=== PATIENT | male | born 1960 | race Hispanic/Latino ===

== ENCOUNTER 2017-02-02 21:04 | Emergency (ER) | payer BC, OTHER ==
[2017-02-02 21:13] VITALS: PULSE 88; RESP 16; TEMP 98.8; O2SAT 97; BMI 29.1
--- NOTE | 2017-02-02 21:41 | ED PDOC ---
Arrival/HPI - General Chief Complaint: High Blood Pressure Time Seen by Provider: 02/02/17 21:20 Historian: Patient - History of Present Illness Narrative History of Present Illness (Text): 02/02/17 21:35 A 56 year old male whose past medical history includes hypertension, presents to the emergency department with 1 week duration high blood pressure. The patient states that today he went to check his blood pressure and it was high. The pharmacy advised him to come into the emergency department. The patient notes that he checked his blood pressure prior to going on vacation 1 week ago and that it was higher than usual and went to visit his PMD who started him on Coreg 12.5 twice a day. He denies fevers chills, shortness of breath, chest pain , abdominal pain, nausea, vomiting, diarrhea, cough, headache, dizziness, or any other complaint. PMD: Dr. Kwaku Fischer Time/Duration: 1 week Symptom Onset: Sudden Symptom Course: Unchanged Activities at Onset: Rest, Light Context: Home Past Medical History - Provider Review Nursing Documentation Reviewed: Yes - Infectious Disease Hx of Infectious Diseases: None - Tetanus Immunization Tetanus Immunization: Unknown - Cardiac Hx Cardiac Disorders: Yes Hx Hypertension: Yes - Endocrine/Metabolic Hx Endocrine Disorders: Yes Hx Diabetes Mellitus Type 2: Yes - Psychiatric Hx Depression: No Hx Emotional Abuse: No Hx Physical Abuse: No Hx Substance Use: No - Surgical History Hx Appendectomy: Yes - Suicidal Assessment Feels Threatened In Home Enviroment: No Family/Social History - Physician Review Nursing Documentation Reviewed: Yes Family/Social History: No Known Family HX Smoking Status: Never Smoked Hx Alcohol Use: Yes Frequency of alcohol use: Socially Hx Substance Use: No Hx Substance Use Treatment: No Allergies/Home Meds Allergies/Adverse Reactions: Allergies No Known Allergies Allergy (Verified 11/18/12 13:03) Home Medications: Home Meds Medication Instructions Recorded Confirmed Carvedilol [Coreg] 12.5 mg PO BID 02/02/17 02/02/17 Losartan Potassium 100 mg PO DAILY 02/02/17 02/02/17 Metformin HCl [Glucophage] 1,000 mg PO BID 02/02/17 02/02/17 SITagliptin [Januvia] 50 mg PO DAILY 02/02/17 02/02/17 amLODIPine [Norvasc] 10 mg PO DAILY 02/02/17 02/02/17 Review of Systems - Physician Review All systems were reviewed & negative as marked: Yes - Review of Systems Constitutional: Other (Hypertensive). absent: Fevers, Night Sweats Respiratory: absent: SOB, Cough Cardiovascular: absent: Chest Pain Gastrointestinal: absent: Abdominal Pain, Diarrhea, Nausea, Vomiting Neurological: absent: Headache, Dizziness Physical Exam Vital Signs Reviewed: Yes Vital Signs Temp Pulse Resp BP Pulse Ox 02/02/17 21:12 98.8 F 88 16 177/103 H 97 Temperature: Afebrile Blood Pressure: Hypertensive Pulse: Regular Respiratory Rate: Normal Appearance: Positive for: Well-Appearing, Non-Toxic, Comfortable Pain Distress: None Mental Status: Positive for: Alert and Oriented X 3 - Systems Exam Head: Present: Atraumatic, Normocephalic Pupils: Present: PERRL Extroacular Muscles: Present: EOMI Conjunctiva: Present: Normal Mouth: Present: Moist Mucous Membranes Neck: Present: Normal Range of Motion Respiratory/Chest: Present: Clear to Auscultation, Good Air Exchange. No: Respiratory Distress, Accessory Muscle Use Cardiovascular: Present: Regular Rate and Rhythm, Normal S1, S2. No: Murmurs Abdomen: Present: Normal Bowel Sounds. No: Tenderness, Distention, Peritoneal Signs Back: Present: Normal Inspection Upper Extremity: Present: Normal Inspection. No: Cyanosis, Edema Lower Extremity: Present: Normal Inspection. No: Edema Neurological: Present: GCS=15, CN II-XII Intact, Speech Normal Skin: Present: Warm, Dry, Normal Color. No: Rashes Psychiatric: Present: Alert, Oriented x 3, Normal Insight, Normal Concentration Medical Decision Making ED Course and Treatment: 02/02/17 21:42 Impression: A 56 year old male presents to the emergency department with 1 week duration high blood pressure. Plan: -- Reassess and disposition Progress Notes: 02/02/17 21:40: Case discussed with Dr. Ames. Recommends doubling the dose of Coreg. States he will follow up with the patient on Monday. - Scribe Statement The provider has reviewed the documentation as recorded by the Kathie Hollis Provider Scribe Attestation: All medical record entries made by the Scribe were at my direction and personally dictated by me. I have reviewed the chart and agree that the record accurately reflects my personal performance of the history, physical exam, medical decision making, and the department course for this patient. I have also personally directed, reviewed, and agree with the discharge instructions and disposition Disposition/Present on Arrival - Present on Arrival Any Indicators Present on Arrival: No History of DVT/PE: No History of Uncontrolled Diabetes: No Urinary Catheter: No History of Decub. Ulcer: No History Surgical Site Infection Following: None - Disposition Have Diagnosis and Disposition been Completed?: Yes Diagnosis: Hypertensive urgency Disposition: HOME/ ROUTINE Disposition Time: 21:49 Patient Problems: Current Active Problems Problem Status Onset Hypertensive urgency Acute Condition: GOOD Additional Instructions: Please follow up with Dr Fischer on Monday. Double your dose of carvedilol: take 25mg two times per day. Return to the ER for any chest pain, trouble breathing, visual disturbance, confusion, numbness, weakness, or for any other concerns. Referrals: Kwaku Fischer JD, MD [Family Provider] - Follow up with primary Forms: [employer] (Chadian)
[2017-02-02 21:58] VITALS: BP 143/94
== END 2017-02-02 22:00 | disposition home or self-care (01) ==
LOC: ED 21:04
DX: I10 Essential (primary) hypertension (principal); E11.9 Type 2 diabetes mellitus without complications

== ENCOUNTER 2017-05-15 06:08 | Day surgery (SDC) | payer BC ==
[2017-04-13 13:47] VITALS: BMI 28.8
--- NOTE | 2017-05-13 14:07 | HP ---
REASON FOR ADMISSION: Left heart cath, possible angioplasty, abnormal stress test. BRIEF CLINICAL HISTORY: This is 56-year-old male with past medical history significant for Jehovah Witness, does not want any blood product during the procedure if need arises. Past history is also significant for diabetes, hypertension, hyperlipidemia, who underwent stress test because of complaining of chest pain while the patient is swimming. Stress is abnormal, so the patient is scheduled for active cardiac cath, possible angioplasty. PAST MEDICAL HISTORY: Significant for diabetes, hypertension, hyperlipidemia. CURRENT MEDICATIONS: The patient is on amlodipine 10 mg daily, Januvia 100 mg daily, metformin 1 g twice a day, losartan 100 mg daily, Plavix 75 mg daily, Coreg 25 mg twice a day, atorvastatin 10 mg daily, aspirin 81 mg daily. ALLERGIES: NO KNOWN DRUG ALLERGIES. CARDIAC WORKUP: Recent cardiac workup as follows, the patient had a stress test dated 04/14/2017. The patient walked for 9 minutes and 31 seconds on the Ruy protocol, achieved 90% rate. No chest pain. Some ST-T changes noted, but the patient had baseline left bundle, so cannot comment on change. Nuclear scan shows diffuse hypokinesis, ejection fraction 34%, abnormal partially reversible anteroseptal, apical, inferoseptal, and inferior defect suggestive of ischemia and wall motion abnormality. Multiple area of ischemia noted. REVIEW OF SYSTEMS: As per HPI. PHYSICAL EXAMINATION: As follows: VITAL SIGNS: Height of the patient 5 feet 7 inches, weight of the patient 184, body mass index 28.8 kg/m2, heart rate 60, blood pressure 120/90. HEENT: PERRLA intact. NECK: Supple. No carotid bruits or thyromegaly. CHEST: Clear to auscultation. HEART: S1 and S2 regular. ABDOMEN: Soft. EXTREMITIES: Clubbing and cyanosis negative. LABORATORY DATA: Blood workup pending. IMPRESSION: Diabetes, hypertension, hyperlipidemia, obesity, abnormal stress test with multiple area of abnormality including apical, anterior, anteroseptal, inferior, inferolateral ischemia with decreased left ventricular function. RECOMMENDATION: We will load aspirin and Plavix, check the blood workup when available. Risks, benefits, and alternatives discussed with the patient. The patient is Jehovah's Witnesses and expressed his feelings that he does not want any blood or blood product if need arises. We will respect that and try to reach left radial approach and load aspirin and Plavix. Further recommendation after cardiac catheterization. We will follow with you. Thank you Dr. Fischer/ Dr. Ro for providing us the opportunity in taking care of the patient, Devonte Mckeon. Carl Bal MD
[2017-05-15 07:09] LABS: BASO # 0.04 K/mm3 (0.0-2.0); BASO % 0.3 % (0.0-3.0); EOS # 0.2 (0.0-0.7); EOS % 1.4 % (1.5-5.0); GRAN # 8.13 (1.4-6.5); GRAN % 71.1 % (50.0-68.0); HEMATOCRIT 40.9 % (42.0-52.0); LYMPH # 2.3 (1.2-3.4); LYMPH % 20.1 % (22.0-35.0); MEAN CELL VOLUME 86.3 fl (80.0-105.0); MEAN CORPUSCULAR HEMOGLOBIN 28.9 pg (25.0-35.0); MEAN CORPUSCULAR HGB CONC 33.5 g/dl (31.0-37.0); MEAN PLATELET VOLUME 10.8 fl (7.0-11.0); MONO # 0.8 (0.1-0.6); MONO % 7.1 % (1.0-6.0); RED CELL DISTRIBUTION WIDTH 12.8 % (11.5-14.5); WHITE BLOOD COUNT 11.4 10^3/ul (4.5-11.0)
[2017-05-15 07:19] LABS: BLOOD UREA NITROGEN 16 mg/dL (7-21); CALCIUM 9.5 mg/dL (8.4-10.5); CARBON DIOXIDE 24 mmol/L (21-33); CHLORIDE 103 mmol/L (98-107); CHOLESTEROL 139 mg/dL (130-200); GFR AFRICAN-AMERICAN > 60; GLUCOSE,RANDOM 256 mg/dL (70-110); POTASSIUM 4.2 mmol/L (3.6-5.0); SODIUM 138 mmol/L (132-148)
[2017-05-15 07:30] LABS: INR 1.01 (0.93-1.08); PARTIAL THROMBOPLASTIN TIME 26.6 Seconds (25.1-36.5)
[2017-05-15 07:58] VITALS: O2SAT 95
[2017-05-15] MEDS ORDERED: Midazolam 2 MG/2 ML VIAL ONE ×2 (08:48→09:25)
[2017-05-15] MEDS ORDERED: Lidocaine 2% Inj (20ml) ONE (08:48)
[2017-05-15] MEDS ORDERED: Nitroglycerin 50mg in D5W 50 MG/250 ML BOTTLE IV ONE (08:49)
[2017-05-15] MEDS ORDERED: Iodixanol 320 MG/ML 200 ML BOTTLE IV ONE (08:49)
[2017-05-15] MEDS ORDERED: Iohexol 350mgl/ml 50 ML ONE (08:49)
[2017-05-15] MEDS ORDERED: Eptifibatide 20 mg/10mL Inj IVP ONE (09:31)
[2017-05-15] MEDS ORDERED: Sodium Chloride 0.9% 1,000 ML IV SCH (11:15)
[2017-05-15 15:49] LABS: BASO # 0.05 K/mm3 (0.0-2.0); BASO % 0.5 % (0.0-3.0); BLOOD UREA NITROGEN 14 mg/dL (7-21); CALCIUM 8.9 mg/dL (8.4-10.5); CARBON DIOXIDE 25 mmol/L (21-33); CHLORIDE 102 mmol/L (98-107); EOS # 0.2 (0.0-0.7); EOS % 1.4 % (1.5-5.0); GFR AFRICAN-AMERICAN > 60; GLUCOSE,RANDOM 254 mg/dL (70-110); GRAN # 7.11 (1.4-6.5); GRAN % 68.2 % (50.0-68.0); HEMATOCRIT 40.5 % (42.0-52.0); LYMPH # 2.3 (1.2-3.4); LYMPH % 21.8 % (22.0-35.0); MEAN CELL VOLUME 86.7 fl (80.0-105.0); MEAN CORPUSCULAR HEMOGLOBIN 28.5 pg (25.0-35.0); MEAN CORPUSCULAR HGB CONC 32.8 g/dl (31.0-37.0); MEAN PLATELET VOLUME 11.3 fl (7.0-11.0); MONO # 0.8 (0.1-0.6); MONO % 8.1 % (1.0-6.0); POTASSIUM 3.8 mmol/L (3.6-5.0); RED CELL DISTRIBUTION WIDTH 12.9 % (11.5-14.5); SODIUM 136 mmol/L (132-148); WHITE BLOOD COUNT 10.4 10^3/ul (4.5-11.0)
[2017-05-15] MEDS ORDERED: Potassium Chloride 20 mEq ER Tab PO ONE (15:51)
[2017-05-15 18:10] VITALS: BP 146/93; PULSE 117; RESP 20; TEMP 98.3
--- NOTE | 2017-05-15 18:45 | CARD ---
APPROVED REPORT Procedure(s) performed: Left Heart Catheterization PTCA with Stenting of Mid to Distal RCA with PATRICK PTCA with Stenting of Ostial Circunflex with PATRICK PTCA with Stenting of OM1 with PATRICK HISTORY The patient is a 56 year-old male with a history of : most recent EF: 34%. (EF Method: RADIONUCLIDE), diabetes mellitus with oral treatment , hypertension , dyslipidemia , had abnormal stress test, showing reversible Ischemia in holli-septal, Apical, inferoseptal andinferior region, with reduced LV Fx. EF34%. INDICATION The indication(s) include : positive stress test, dyspnea. CASE TECHNIQUE The patient was brought electively to the Cardiac Catheterization Laboratory in a fasting state and was prepped and draped in a sterile manner. The left wrist was infiltrated with 2% Lidocaine subcutaneous anesthesia. A 6FR GLIDESHEATH ACCESS KIT sheath was inserted into the left radial artery without difficulty. Coronary angiography was performed using coronary diagnostic catheters. The left coronary system was accessed and visualized with a Diagnostic ,5 Fr JL 3.5 catheter. The right coronary system was accessed and visualized with a Diagnostic ,5 Fr JR 4 catheter. The left ventricle was accessed and visualized with a 5 Fr Pigtail 145 (Angled) catheter. Left ventricular/Aortic Valve gradient assessed on pullback. Left ventriculogram was performed in [place] projection. Closure device was deployed with a Fr TR Band (Regular) without any complications. The patient tolerated the procedure well and there were no complications associated with the procedure. Vessel Analysis The patient's coronary anatomy is right dominant. The left main coronary artery is a medium size vessel with diffuse calcification noted throughout this vessel and without significant stenosis. The left main trifurcates to the left anterior descending, circumflex, and ramus. The left anterior descending artery is a medium size vessel with diffuse calcification noted throughout this vessel and without significant stenosis. There is a 50% stenosis in the mid to distal segment. Multiple stenoses The first diagonal branch is a medium size vessel with diffuse calcification noted throughout this vessel and without significant stenosis. The circumflex artery is a medium size vessel with diffuse calcification noted throughout this vessel and with significant stenosis. There is a 80% stenosis in the ostial segment. The first obtuse marginal branch is a medium size vessel with diffuse calcification noted throughout this vessel and with significant stenosis. There is a 90% stenosis in the proximal segment. The ramus intermedius artery is a medium size vessel with diffuse calcification noted throughout this vessel and without significant stenosis. The right coronary artery is a large size vessel with diffuse calcification noted throughout this vessel and with significant stenosis. There is a 80-90% stenosis in the mid segment. three tandum lesions The right posterior descending artery is a large size vessel with diffuse calcification noted throughout this vessel and without significant stenosis. The right posterolateral branch is a medium size vessel with diffuse calcification noted throughout this vessel and without significant stenosis. Left Ventricle The left ventricle is mildly enlarged in size with moderately decreased contractility. Ischemic cardiomyopathy. The left ventricular ejection fraction is estimated to be 35%. The left ventricular end diastolic pressure is 18 mmHg. There was no gradient across the aortic valve upon pullback. PCI Technique Lesion Anticoagulation was achieved with Heparin. Percutaneous coronary intervention was performed on the mid right coronary artery. The lesion stenosis prior to intervention was 80-90% with HERO 2 flow. A 6 Fr JR 3.5 Guide Catheter was used to engage the ostium. BALLOON DILATION A Balloon catheter 2.0 x 15 mm Mini Trek RX was inserted and inflated up to 12.00atm for 25seconds. STENT DEPLOYMENT A drug-eluting stent 3.0 x 30 mm Resolute PATRICK was inserted and inflated up to 10.00atm for 15seconds. POST STENT DEPLOYMENT BALLOON DILATION A Balloon catheter 3.5 x 15 mm Trek RX NC was inserted and inflated up to 15.00atm for 20seconds. Final angiography reveals 0 % stenosis with HERO 3 flow. PCI Technique Lesion 2 Percutaneous Coronary Intervention was performed on the first obtuse marginal branch segment. The lesion stenosis prior to intervention was 90% with HERO 2 flow. A 6 Fr XB 3 Guide Catheter was used to engage the ostium. A Luge 182 Interventional Guidewire was used to cross the lesion. BALLOON DILATION A Balloon catheter 2.0 x 10 mm Sprinter RX was inserted and inflated up to 8.00atm for 10seconds. Body wire Choice PT,used in Cx STENT DEPLOYMENT A drug-eluting stent 2.5 x 26 mm Resolute PATRICK was inserted and inflated up to 9.00atm for 15seconds. POST STENT DEPLOYMENT BALLOON DILATION A Balloon catheter 2.75 x 12 mm Sprinter NC was inserted and inflated up to 14.00atm for 20seconds. Final angiography reveals 0 % stenosis with HERO 3 flow. PCI Technique Lesion 3 Percutaneous Coronary Intervention was performed on the Ostial circumflex artery segment. The lesion stenosis prior to intervention was 80% with HERO 2 flow. A 6 Fr XB 3 Guide Catheter was used to engage the ostium. A Luge 182 Interventional Guidewire was used to cross the lesion. STENT DEPLOYMENT A drug-eluting stent 3.0 x 9 mm Resolute PATRICK was inserted and inflated up to 10.00atm for 25seconds. POST STENT DEPLOYMENT BALLOON DILATION A Balloon catheter was inserted and inflated up to 12.00atm for 10seconds. Final angiography reveals 0 % stenosis with HERO 3 flow. Conclusion Multi vessel CAD, But distal vesselk are poor target for CABG ( Not suitable for CABG). decreased Lv Fx.EF-35%, EDP-18 mmof Hg. Successful PTCA with Patrick of MID RCA, Ostial Cx and ARTHUR Recommendations Cardiac Rehabilitation ReferralDaily ASA with Plavix for at least one year Aggressive Medical TherapyCardiac Risk Reduction Program Weight Loss Reduction Program F/U LV fx eval in 3-6 months and if remains less than 35%, consider AICD. CC; DR. Fischer/ Jia.
--- NOTE | 2017-05-16 | CARD ---
APPROVED REPORT EKG Measurement Heart [id number] <Conclusion> Normal sinus rhythm Left bundle branch block Abnormal ECG
--- NOTE | 2017-05-16 00:31 | CARD ---
APPROVED REPORT EKG Measurement Heart [id number] <Conclusion> Normal sinus rhythm Possible Left atrial enlargement Left bundle branch block Abnormal ECG
--- NOTE | 2017-05-16 01:47 | CON ---
DATE: 05/15/2017 HISTORY OF PRESENT ILLNESS: The patient is a 56-year-old male who was admitted for elective cardiac catheterization status post abnormal stress test. The patient had been complaining of some angina during exercise as well as mild dyspnea on exertion. The patient was seen on consultation by Cardiology Dr. Bal who performed a cardiac catheterization and stent placement today. The patient is lying in bed postoperatively in no acute distress. He denies any chest pain or shortness of breath at the present time. PAST MEDICAL HISTORY: Includes type II diabetes mellitus, hypertension, and hypercholesteremia. PAST SURGICAL HISTORY: The patient has no significant past surgical history. ALLERGIES: THE PATIENT HAS NO KNOWN DRUG ALLERGIES CURRENT MEDICATIONS: Include amlodipine 10 mg daily, Plavix 75 mg daily, Januvia 100 mg daily, metformin 1 g twice daily, carvedilol 25 mg twice daily, Lipitor 10 mg daily, and aspirin 81 mg daily. SOCIAL HISTORY: The patient has no history of tobacco or alcohol use. He is independent with ADL's and . REVIEW OF SYSTEMS: Essentially negative other than above. PHYSICAL EXAMINATION: GENERAL: The patient is a well-developed male, in no acute distress. VITAL SIGNS: Blood pressure 140/84, temperature 98, pulse 80 and respiratory rate 16. HEENT: Head is normocephalic and atraumatic. Pupils are equal, round and reactive to light. Extraocular movements are intact. NECK: Supple. No thyromegaly. No carotid bruit. No adenopathy. LUNGS: Clear. HEART: Regular rate and rhythm with no murmurs, rubs, or gallops. ABDOMEN: Soft and nontender. Bowel sounds are normoactive. EXTREMITIES: Without cyanosis, clubbing or edema. Left arm surgical wound is clean with dressing intact. There is no cyanosis, clubbing or edema. NEUROLOGICAL: The patient is awake and oriented x3 without focal sensory or motor deficits. SKIN: Warm and dry. LABORATORY DATA: WBC is 10.4, hemoglobin 13.3 and hematocrit 40.5. Sodium 136, potassium 4.8, chloride 102, CO2 of 25, BUN 14, creatinine 0.9 and glucose is slightly elevated 254. IMPRESSION: 1. Coronary artery disease status post catheterization with stent placement. 2. Hypertension. 3. Type 2 diabetes mellitus. 4. Hypercholesteremia. PLAN: Continue post catheterization care. Cardiology follow up Dr. Bal. We will follow the patient in the office within the next one to two weeks. DANUTA Moore MD
== END 2017-05-15 18:32 | disposition home or self-care (01) ==
LOC: CATH 06:08 → 2RSO 11:15 → CATH 18:32
PROVIDERS: ATTEND Internal Medicine Cardiovascular Disease
DX: I25.10 Atherosclerotic heart disease of native coronary artery without angina pectoris (principal); I25.5 Ischemic cardiomyopathy; I10 Essential (primary) hypertension; E78.00 Pure hypercholesterolemia, unspecified; E78.5 Hyperlipidemia, unspecified; E11.9 Type 2 diabetes mellitus without complications; I44.7 Left bundle-branch block, unspecified; Z95.1 Presence of aortocoronary bypass graft; Z79.82 Long term (current) use of aspirin; Z79.84 Long term (current) use of oral hypoglycemic drugs; Z95.5 Presence of coronary angioplasty implant and graft; R94.39 Abnormal result of other cardiovascular function study
CPT/HCPCS: 36415; 80048; 80061; 85025; 85175; 85610; 85730; 93005; 93458; 99152; 99153; C1725 ×5; C1769 ×3; C1874 ×3; C1887 ×4; C9600; C9601; J1327; J1644 ×2; J2250; J3010; J7040 ×2; Q9967

== ENCOUNTER 2018-06-29 06:28 | Outpatient (CLI) | payer BC | END 2018-06-29 06:29 | disposition home or self-care (01) | LOC: CARDIO 06:28 | DX: E11.9 Type 2 diabetes mellitus without complications (principal); I25.10 Atherosclerotic heart disease of native coronary artery without angina pectoris; R07.89 Other chest pain ==

== ENCOUNTER 2018-09-02 07:19 | Inpatient (IN) | payer BC ==
[2018-09-02] MEDS ORDERED: Morphine 2 mg/ml ISec IVP STA (07:36)
[2018-09-02] MEDS ORDERED: Aspirin 325 mg EC Tablets PO ONE (07:39)
--- NOTE | 2018-09-02 07:40 | ED PDOC ---
Arrival/HPI - General Chief Complaint: Chest Pain Time Seen by Provider: 09/02/18 07:21 Historian: Patient - Critical Care Critical Care Minutes: 90 minutes - History of Present Illness Narrative History of Present Illness (Text): 09/02/18 07:37 58 year old male, whose past medical history includes diabetes, hypertension, hypercholesterolemia, s/p 3 stents (15 months ago), presents to the emergency department complaining of chest pain that woke him up 1.5 hours prior to arrival. Patient describes the pain as a pressure-like sensation. He did not take any medication for the pain. Patient had a stress test done 06/29/18. Patient did not take his dose of hypertension medication today. Patient occasionally drinks, and admits to drinking last night. Patient denies any history of smoking. Patient denies any fever, chills, shortness of breath, nausea, vomiting, diarrhea, urinary symptoms, back pain, neck pain, headache, dizziness, or any other complaints. PMD: Dr. Fischer [employer]ic [employer]: Dr. Valeriano De La Rosa Time/Duration: Other (1.5 hours ago) Symptom Onset: Sudden Symptom Course: Unchanged Activities at Onset: Sleeping Context: Home Past Medical History - Provider Review Nursing Documentation Reviewed: Yes - Infectious Disease Hx of Infectious Diseases: None - Tetanus Immunization Tetanus Immunization: Unknown - Cardiac Hx Hypertension: Yes - Neurological Hx Paralysis: No - Endocrine/Metabolic Hx Endocrine Disorders: Yes Hx Diabetes Mellitus Type 2: Yes - Hematological/Oncological Hx Blood Transfusions: No (PT IS [facility]/NO BLOOD TRANSFUSIONS) - Musculoskeletal/Rheumatological Hx Musculoskeletal Disorders: No - Psychiatric Hx Emotional Abuse: No Hx Physical Abuse: No Hx Substance Use: No - Surgical History Hx Cardiac Catheterization: Yes (x3) - Anesthesia Hx Anesthesia Reactions: No Hx Malignant Hyperthermia: No - Suicidal Assessment Feels Threatened In Home Enviroment: No Family/Social History - Physician Review Nursing Documentation Reviewed: Yes Family/Social History: No Known Family HX Smoking Status: Never Smoked Hx Alcohol Use: Yes (2X MONTH) Hx Substance Use: No Hx Substance Use Treatment: No Allergies/Home Meds Allergies/Adverse Reactions: Allergies No Known Allergies Allergy (Verified 09/02/18 12:07) Home Medications: Home Meds Medication Instructions Recorded Confirmed Carvedilol [Coreg] 25 mg PO BID 02/02/17 09/02/18 Losartan Potassium 100 mg PO DAILY 02/02/17 09/02/18 SITagliptin [Januvia] 100 mg PO DAILY 02/02/17 09/02/18 amLODIPine [Norvasc] 10 mg PO DAILY 02/02/17 09/02/18 Aspirin [Aspirin Chewable] 81 mg PO DAILY 04/13/17 09/02/18 Atorvastatin [Lipitor] 10 mg PO DIN 04/13/17 09/02/18 Clopidogrel [Plavix] 75 mg PO DAILY 05/09/17 09/02/18 MetFORMIN [glucOPHAGE] 1,000 mg PO BID 06/29/18 09/02/18 Review of Systems - Physician Review All systems were reviewed & negative as marked: Yes - Review of Systems Constitutional: absent: Fevers, Other (chills) Respiratory: absent: SOB Cardiovascular: Chest Pain Gastrointestinal: absent: Diarrhea, Nausea, Vomiting Genitourinary Male: absent: Dysuria, Frequency, Hematuria Musculoskeletal: absent: Back Pain, Neck Pain Neurological: absent: Headache, Dizziness Physical Exam Vital Signs Reviewed: Yes Vital Signs Temp Pulse Pulse Resp BP BP Pulse Ox 09/02/18 07:31 95 H 163/99 H 09/02/18 07:19 97.5 F L 91 H 18 171/107 H 100 Temperature: Afebrile Blood Pressure: Hypertensive Pulse: Regular Respiratory Rate: Normal Appearance: Positive for: Well-Appearing, Non-Toxic, Comfortable Pain Distress: None Mental Status: Positive for: Alert and Oriented X 3 - Systems Exam Head: Present: Atraumatic, Normocephalic Pupils: Present: PERRL Extroacular Muscles: Present: EOMI Conjunctiva: Present: Normal Mouth: Present: Moist Mucous Membranes Neck: Present: Normal Range of Motion Respiratory/Chest: Present: Clear to Auscultation, Good Air Exchange. No: Respiratory Distress, Accessory Muscle Use Cardiovascular: Present: Regular Rate and Rhythm, Normal S1, S2. No: Murmurs Abdomen: No: Tenderness, Distention, Peritoneal Signs Back: Present: Normal Inspection Upper Extremity: Present: Normal Inspection. No: Cyanosis, Edema Lower Extremity: Present: Normal Inspection. No: Edema Neurological: Present: GCS=15, Speech Normal Skin: Present: Warm, Dry, Normal Color. No: Rashes Psychiatric: Present: Alert, Oriented x 3, Normal Insight, Normal Concentration Medical Decision Making ED Course and Treatment: 09/02/18 07:37 Impression: 58 year old male presents complaining of chest pressure that woke him up this morning 1.5 hours prior to arrival. Plan: -- EKG -- Labs -- Chest X-ray -- Aspirin, Morphine, Nitrostate SL Tab -- Reassess and disposition Prior Visits: Notes and results from previous visits were reviewed. Progress Notes: EKG shows Sinus at 91 BPM with LBBB flattening of the t-wave V4 and inversion of the t-wave in V5 which is new compared to 05/2017. LBBB is old. Interpreted by me. 09/02/18 07:40 Called sent out to [address] Bal 09/02/18 07:48 Patient is vomiting in the ER as per nurse. 09/02/18 08:[address] Rios covering Dr. Bal who is aware and recommends plavix, heparin drip, and nitroglycerin drip. 09/02/18 09:15 Case discussed with the jail keeper Dr. Lopez who is requests a second Troponin to be done. 09/02/18 10:00 At this time, patient is pain free. 09/02/18 10:32 Labs reviewed. Second Troponin is 0.58 09/02/18 10:50 Case discussed with patient's PMD Dr. Ames who is aware and agrees with the plan. 09/02/18 10:53 Case discussed with the Scheduler Conveyor Dr. Lopez who accepts patient into ICU. - Critical Care Critical Care Minutes: 90 minutes - Lab Interpretations I have reviewed the lab results: Yes - RAD Interpretation Radiology Orders: 09/02/18 07:28 CHEST PORTABLE [RAD] Stat Development Team Lead: Radiologist - EKG Interpretation Interpreted by ED Physician: Yes Type: 12 lead EKG - Medication Orders Current Medication Orders: Morphine Sulfate (Morphine) 2 mg IVP STAT STA Stop: 09/02/18 07:37 Nitroglycerin (Nitrostat Sl Tab) 0.4 mg SL STAT STA Stop: 09/02/18 07:37 Discontinued Medications Aspirin (Aspirin) 325 mg PO STAT STA Stop: 09/02/18 07:29 - Scribe Statement The provider has reviewed the documentation as recorded by the Kathie Harris Provider Scribe Attestation: All medical record entries made by the Scribe were at my direction and personally dictated by me. I have reviewed the chart and agree that the record accurately reflects my personal performance of the history, physical exam, medical decision making, and the department course for this patient. I have also personally directed, reviewed, and agree with the discharge instructions and disposition. Disposition/Present on Arrival - Present on Arrival Any Indicators Present on Arrival: No History of DVT/PE: No History of Uncontrolled Diabetes: No Urinary Catheter: No History of Decub. Ulcer: No History Surgical Site Infection Following: None - Disposition Have Diagnosis and Disposition been Completed?: Yes Diagnosis: NSTEMI (non-ST elevated myocardial infarction), Chest pain Disposition: HOSPITALIZED Disposition Time: 09:30 Condition: SERIOUS
[2018-09-02 07:50] LABS: BASO # 0.03 K/mm3 (0.0-2.0); BASO % 0.3 % (0.0-3.0); EOS # 0.1 (0.0-0.7); EOS % 1.3 % (1.5-5.0); LYMPH # 3.3 (1.2-3.4); LYMPH % 29.5 % (22.0-35.0); MEAN CELL VOLUME 85.5 fl (80.0-105.0); MEAN CORPUSCULAR HEMOGLOBIN 28.6 pg (25.0-35.0); MEAN CORPUSCULAR HGB CONC 33.5 g/dl (31.0-37.0); MEAN PLATELET VOLUME 11.2 fl (7.0-11.0); MONO # 0.4 (0.1-0.6); MONO % 3.9 % (1.0-6.0); RBC 4.89 10^6/uL (3.5-6.1); RED CELL DISTRIBUTION WIDTH 12.9 % (11.5-14.5); WHITE BLOOD COUNT 11.1 10^3/uL (4.5-11.0)
[2018-09-02 08:00] LABS: ALB/GLOB RATIO 1.2 (1.1-1.8); ALT/SGPT 26 U/L (7-56); AST/SGOT 25 U/L (17-59); BLOOD UREA NITROGEN 14 mg/dL (7-21); CALCIUM 9.4 mg/dL (8.4-10.5); GFR NON-AFRICAN AMERICAN > 60
[2018-09-02 08:12] LABS: B-TYPE NATRIURETIC PEPTIDE 63.5 pg/mL (0-450); TROPONIN I < 0.01 ng/mL
[2018-09-02] MEDS ORDERED: Heparin25000 units/250ml 1/2NS 25,000 UNITS/250 ML BAG IV SCH (08:30)
[2018-09-02 09:26] LABS: INR 0.88; PARTIAL THROMBOPLASTIN TIME 25.5 Seconds (26.9-38.3)
[2018-09-02 09:36] LABS: PROTHROMBIN TIME 9.9 SECONDS (9.4-12.5)
[2018-09-02] MEDS: Insulin Reg-MEDIUM-Coverage SC SCH ×3 (09:50→21:41)
[2018-09-02] MEDS ORDERED: Nitroglycerin 50mg in D5W 50 MG/250 ML BOTTLE IV PRN (09:52)
[2018-09-02] MEDS ORDERED: Insulin Regular 1 UNITS/0.01 ML ML ONE (09:54)
--- NOTE | 2018-09-02 10:59 | RAD ---
Date of service: 09/02/2018 HISTORY: chest pain COMPARISON: No prior. TECHNIQUE: 1 view obtained. FINDINGS: LUNGS: No active pulmonary disease. PLEURA: No significant pleural effusion identified, no pneumothorax apparent. CARDIOVASCULAR: No aortic atherosclerotic calcification present. Normal cardiac size. No pulmonary vascular congestion. OSSEOUS STRUCTURES: No significant abnormalities. VISUALIZED UPPER ABDOMEN: Normal. OTHER FINDINGS: None. IMPRESSION: No active disease.
[2018-09-02] MEDS ORDERED: Eptifibatide 20 mg/10mL Inj IVP ONE ×3 (11:39→11:55)
[2018-09-02 11:56] LABS: BARBITURATES, UR NEGATIVE (NEGATIVE); BENZODIAZEPINES, UR NEGATIVE (NEGATIVE); OPIATES, UR POSITIVE (NEGATIVE); PHENCYCLIDINE, UR NEGATIVE (NEGATIVE)
[2018-09-02 12:00] LABS: URINE APPEARANCE CLEAR (CLEAR); URINE BILIRUBIN NEGATIVE (NEGATIVE); URINE BLOOD NEGATIVE (NEGATIVE); URINE COLOR YELLOW (YELLOW); URINE GLUCOSE (UA) 250 mg/dL (NEGATIVE); URINE LEUKOCYTE ESTERASE NEGATIVE Leu/uL (NEGATIVE); URINE PROTEIN NEGATIVE mg/dL (<30 mg/dL); URINE UROBILINOGEN 0.2 E.U./dL (<1 E.U./dL)
[2018-09-02] MEDS ORDERED: Metoprolol 1 mg/ml Inj IVP STA (12:04)
[2018-09-02] MEDS: Eptifibatide 0.75 mg/ml 75 MG/100 ML BAG IV SCH ×2 (12:06→20:02)
[2018-09-02 13:40] VITALS: BMI 27.3
[2018-09-02] MEDS ORDERED: Influenza Vaccine 60 mcg/0.5 mL SYR (4YR UP) IM ONE (13:40)
[2018-09-02] MEDS ORDERED: Pneumococcal 23-Valent Vaccine IM ONE (13:40)
[2018-09-02] MEDS: Metoprolol 1 mg/ml Inj IVP SCH ×2 (15:44→21:42)
--- NOTE | 2018-09-02 17:32 | CARD ---
APPROVED REPORT Date of service: 09/02/2018 EKG Measurement Heart [id number] <Conclusion> Normal sinus rhythm Left bundle branch block Abnormal ECG
--- NOTE | 2018-09-02 17:34 | CARD ---
APPROVED REPORT Date of service: 09/02/2018 EKG Measurement Heart [id number] <Conclusion> Sinus tachycardia Left bundle branch block Abnormal ECG
--- NOTE | 2018-09-02 17:35 | CARD ---
APPROVED REPORT Date of service: 09/02/2018 EKG Measurement Heart [id number] <Conclusion> Normal sinus rhythm Left bundle branch block Abnormal ECG
--- NOTE | 2018-09-02 20:01 | CON ---
DATE: 09/02/2018 HISTORY OF PRESENT ILLNESS: This 58-year-old gentleman with history of diabetes mellitus type 2, hypercholesterolemia, and coronary artery disease, status post stents placement 15 months ago who presented to [facility] with substernal chest pain, pressure-like 5/10 without radiating to any other part of the body. He did not complain of any shortness of breath, fever, chills, or sweats; however, did have one episode of vomiting. The patient reports that the pain appeared about hour and a half ago and was constant. PAST MEDICAL HISTORY: Diabetes mellitus type 2, hypercholesterolemia, hypertension, and coronary artery disease. FAMILY HISTORY: His father at the age of 69 of heart attack. SOCIAL HISTORY: Lifelong nonsmoker. No alcohol or illicit drug abuse. ALLERGIES: NKDA. MEDICATIONS AT HOME: Norvasc, Januvia, metformin, losartan, Plavix, Coreg, Lipitor, and aspirin. REVIEW OF SYSTEMS: Review of 12-organ system other than mentioned in history of present illness is negative. PHYSICAL EXAMINATION: VITAL SIGNS: Temperature 98, blood pressure 136/80, oxygen saturation 97% on 2 L nasal cannula, respiratory rate 18, and heart rate 88. ENT: Head and neck atraumatic. LUNGS: Clear to auscultation bilaterally. HEART: Regular rate and rhythm. S1 and S2 normal. ABDOMEN: Soft, nontender, and nondistended. MUSCULOSKELETAL: No C/C/E. NEUROLOGIC: The patient moves all extremities spontaneously. SKIN: Moist. PSYCHIATRIC: The patient is alert, awake, and oriented x3. LABORATORY DATA: Sodium 139, potassium 3.8, chloride 102, carbon dioxide 23, BUN 14, creatinine 0.8, and glucose 191. AST 25, ALT 26, and total bilirubin 0.3. Troponin less than 0.01. ProBNP is 63.5 and albumin 4. WBC 11.1, hemoglobin 14, and platelet count 239. EKG showed ST depression in V5 and V6 and left bundle-branch block, which appears to be old. ASSESSMENT AND PLAN: This is a 58-year-old gentleman who presented with pressure-like substernal chest pain highly suspicious for cardiac in origin. First troponin is negative and subtle new changes on EKG do not allow to solidly say whether they are relating to ischemia or represent difference in position of the leads. Left bundle-branch block is old. At the present time, I would proceed with aspirin, Plavix, beta-bushra, statins, nitroglycerin drip, heparin drip, and trending troponin. If second troponin comes up negative, possibility of acute myocardial ischemia due to coronary event would be much less likely. We will continue to target euvolemia, euglycemia, normothermia, and oxygen saturation more than 90%. We will continue with DVT and GI prophylaxes. Addendum: second troponin came back elevated, cardiology service notified, nitro drip increased, chest pain resolved, scheduled for angio/PCI in am ccm time 40 min Franky Lopez MD MTDD
--- NOTE | 2018-09-02 22:50 | CON ---
DATE: 09/02/[address] Bal. HISTORY OF PRESENT ILLNESS: The patient is a 58-year-old male who presents with substernal chest pressure this morning, which is not relieved with and he presented to the emergency room. He has diabetes mellitus, hypertension, and hypercholesterolemia. He had multiple stents placed about a year and half ago. His stress test in June was abnormal. Because of his ongoing symptoms, the patient was brought into the emergency room and admitted. He started on Tridil, heparin, and beta-blockers. He is currently asymptotic. SOCIAL HISTORY: He denies smoking. The patient is a schoolteacher. REVIEW OF SYSTEMS: As above. PHYSICAL EXAMINATION: VITAL SIGNS: Blood pressure is 154/59 and heart rate is in the 80s. NECK: Negative JVD. LUNGS: Without rales. HEART: S1 and S2. EXTREMITIES: Without edema. LABORATORY DATA: EKG shows left bundle-branch block. Laboratory reveals a troponin as 0.58 with a glucose of 191. Hemoglobin is 14. IMPRESSION: 1. Non-ST elevation myocardial infarction. 2. Unstable angina. 3. High probability for new coronary lesion. 4. History of triple-vessel coronary artery disease. 5. Diabetes mellitus. 6. Hypertension. 7. Hypercholesterolemia. 8. Systemic hypertension. PLAN: Given these findings, we will start the patient on IV heparin, IV Integrilin, resume his aspirin and Plavix. We will discuss with Dr. Bal to arrange for cardiac catheterization in the morning. Roger Rios MD
--- NOTE | 2018-09-02 23:52 | HP ---
DATE OF EXAM: 09/02/2018 HISTORY OF PRESENT ILLNESS: The patient is a 58-year-old male admitted through the Emergency Department today, complaining of precordial chest pressure. The patient denies any nausea, no vomiting, no shortness of breath. The patient has a history of coronary artery disease status post stent placement x3. He is admitted to the Intensive Care Unit for further evaluation and monitoring with an elevation of troponin of 0.58, rising from less than 0.01 previously. PAST MEDICAL HISTORY: Includes type 2 diabetes mellitus, hypertension, and hypercholesterolemia. PAST SURGICAL HISTORY: Includes status post appendectomy. There is no history of cancer. ALLERGIES: PATIENT HAS NO KNOWN ALLERGIES. CURRENT MEDICATIONS: Include metformin 1000 mg twice daily, Januvia 100 mg daily, losartan 100 mg daily, carvedilol 25 mg twice daily, Lipitor 10 mg daily, and Plavix 75 mg daily. FAMILY HISTORY: The patient has a family history of heart disease and diabetes. SOCIAL HISTORY: The patient denies any history of tobacco or alcohol use. REVIEW OF SYSTEMS: The patient denies any abdominal pain, no melena, and no bright red blood per rectum. No nausea, no vomiting, and no diarrhea. No fever, no chills, and no cough. No jaundice and no rash. PHYSICAL EXAMINATION: GENERAL: The patient is a well-developed male in no acute distress. VITAL SIGNS: Blood pressure 163/93, pulse 87, respiratory rate 23. Patient is afebrile. HEENT: Head is normocephalic and atraumatic. Pupils equal, round, reactive to light. Extraocular movement intact. NECK: Supple. No thyromegaly. No carotid bruit. No adenopathy. LUNGS: Clear. HEART: Regular rate and rhythm. ABDOMEN: Soft and nontender. Bowel sounds are normoactive. EXTREMITIES: Without cyanosis, clubbing or edema. NEUROLOGIC: The patient is awake and oriented x3 without focal sensory or motor deficits. SKIN: Warm and dry. LABORATORY DATA: WBC is 11.1, hemoglobin 14.0, and hematocrit 41.8. Sodium 139, potassium 3.8, chloride 102, CO2 of 23, BUN 14, creatinine 0.8, and glucose is 191. Troponin was less than 0.01 at 7:30 a.m. and 9:15 a.m. was 0.58. Chest x-ray shows no active disease. IMPRESSION: 1. Coronary artery disease, rule out non-ST segment elevation myocardial infarction. 2. Type 2 diabetes mellitus. 3. Hypertension. 4. Hypercholesterolemia. PLAN: The patient is admitted to Intensive Care Unit. We will obtain Cardiology consult from Dr. Bal/Dr. Ro for possible cardiac catheterization. Monitor electrolytes and glucose levels. Kwaku Fischer JD/
[2018-09-03] MEDS: Insulin Reg-MEDIUM-Coverage SC SCH ×5 (03:07→22:24)
[2018-09-03] MEDS: Metoprolol 1 mg/ml Inj IVP SCH (04:20)
[2018-09-03] MEDS ORDERED: Lidocaine PF 2% (5 ml) Inj (For Cardiac Arrhy) ONE (07:06)
[2018-09-03] MEDS ORDERED: Iohexol 350 MG/100 ML VIAL ONE (07:07)
[2018-09-03] MEDS ORDERED: Iohexol 350mgl/ml 50 ML ONE (07:07)
[2018-09-03] MEDS ORDERED: Midazolam 2 MG/2 ML VIAL ONE ×3 (07:58→08:18)
[2018-09-03] MEDS ORDERED: Eptifibatide 20 mg/10mL Inj IVP ONE (08:24)
[2018-09-03] MEDS ORDERED: Sodium Chloride 0.9% 1,000 ML IV SCH (09:15)
--- NOTE | 2018-09-03 11:35 | CP.CCUPN ---
<Silver Alvarado - Last Filed: 09/03/18 12:09> CCU Subjective - Physician Review Events Since Last Encounter (Free Text): 09/03/18 11:32 pt taken to [facility] today Subjective (Free Text): 09/03/18 11:33 Pt seen and examined this morning at bedside in the ICU, denies chest pain, SOB, or bleeding from the cath site CCU Objective - Vital Signs / Intake & Output Vital Signs (Last 4 hours): Vital Signs Pulse BP 09/03/18 11:28 27 L 135/81 Intake and Output (Last 8hrs): Intake & Output 09/02/18 09/03/18 09/03/18 22:59 06:59 14:59 Intake Total 1065.5 495 Output Total 1000 950 Balance 65.5 -455 Weight 176 lb 1.6 oz Intake: IV 195.5 215 Right Antecubital 215 Right Hand 184 Oral 870 280 Output: Urine 1000 950 Urine, Voided 1000 950 Other: # Bowel Movements 1 - Physical Exam Physical Exam Limitations: Negative for: Altered Mental Status Head: Positive for: Atraumatic, Normocephalic Pupils: Positive for: PERRL Extroacular Muscles: Positive for: EOMI Conjunctiva: Positive for: Normal Mouth: Positive for: Moist Mucous Membranes Neck: Positive for: Normal Range of Motion Respiratory/Chest: Positive for: Clear to Auscultation, Good Air Exchange. Negative for: Respiratory Distress, Accessory Muscle Use Cardiovascular: Positive for: Regular Rate and Rhythm, Normal S1, S2. Negative for: Murmurs Abdomen: Negative for: Tenderness, Distention, Peritoneal Signs Back: Positive for: Normal Inspection Upper Extremity: Positive for: Normal Inspection. Negative for: Cyanosis, Edema Lower Extremity: Positive for: Normal Inspection, Other (cath site, rigth groin, bandage is clean dry and intact). Negative for: Edema Neurological: Positive for: GCS=15, Speech Normal Skin: Positive for: Warm, Dry, Normal Color. Negative for: Rashes Psychiatric: Positive for: Alert, Oriented x 3, Normal Insight, Normal Concentration - Medications Active Medications: Active Medications Generic Name Dose Route Start Last Admin Trade Name Freq PRN Reason Stop Dose Admin Aspirin 81 mg 09/03/18 10:00 09/03/18 11:26 Ecotrin PO Not Given DAILY [facility] Atorvastatin Calcium 40 mg 09/03/18 17:00 Lipitor PO DIN JAMES Clopidogrel Bisulfate 75 mg 09/03/18 10:00 Plavix PO DAILY JAMES Sodium Chloride 1,000 mls @ 100 mls/hr 09/03/18 09:15 09/03/18 11:29 Sodium Chloride 0.9% IV 09/03/18 15:00 100 mls/hr .Q10H JAMES Administration Insulin Human Regular 0 units 09/02/18 09:15 09/03/18 11:27 Humulin R Med SC 5 units Q6H JAMES Administration Protocol Metoprolol Tartrate 5 mg 09/02/18 16:00 09/03/18 04:20 Lopressor IVP 5 mg Q6H JAMES Administration Metoprolol Tartrate 25 mg 09/03/18 10:00 09/03/18 11:28 Lopressor PO 25 mg BID JAMES Administration - Patient Studies Lab Studies: Lab Studies 09/03/18 09/03/18 09/02/18 Range/Units 10:29 02:57 21:30 APTT 52.4 H (26.9-38.3) Seconds POC Glucose (mg/dL) 263 H 165 H (65-110) mg/dL Urine Color (YELLOW) Urine Appearance (CLEAR) Urine pH (4.7-8.0) Ur Specific Sher[place] (1.005-1.035) Urine Protein (<30 mg/dL) mg/dL Urine Glucose (UA) (NEGATIVE) mg/dL Urine Ketones (NEGATIVE) mg/dL Urine Blood (NEGATIVE) Urine Nitrate (NEGATIVE) Urine Bilirubin (NEGATIVE) Urine Urobilinogen (<1 E.U./dL) E.U./dL Ur Leukocyte Esterase (NEGATIVE) Beau/uL Urine Opiates Screen (NEGATIVE) Urine Methadone Screen (NEGATIVE) Ur Barbiturates Screen (NEGATIVE) Ur Phencyclidine Scrn (NEGATIVE) Ur Amphetamines Screen (NEGATIVE) U Benzodiazepines Scrn (NEGATIVE) U Oth Cocaine Metabols (NEGATIVE) U Cannabinoids Screen (NEGATIVE) 09/02/18 09/02/18 09/02/18 Range/Units 21:21 15:30 11:05 APTT 55.1 H (26.9-38.3) Seconds POC Glucose (mg/dL) 303 H (65-110) mg/dL Urine Color (YELLOW) Urine Appearance (CLEAR) Urine pH (4.7-8.0) Ur Specific Sheridan (1.005-1.035) Urine Protein (<30 mg/dL) mg/dL Urine Glucose (UA) (NEGATIVE) mg/dL Urine Ketones (NEGATIVE) mg/dL Urine Blood (NEGATIVE) Urine Nitrate (NEGATIVE) Urine Bilirubin (NEGATIVE) Urine Urobilinogen (<1 E.U./dL) E.U./dL Ur Leukocyte Esterase (NEGATIVE) Beau/uL Urine Opiates Screen Positive H (NEGATIVE) Urine Methadone Screen Negative (NEGATIVE) Ur Barbiturates Screen Negative (NEGATIVE) Ur Phencyclidine Scrn Negative (NEGATIVE) Ur Amphetamines Screen Negative (NEGATIVE) U Benzodiazepines Scrn Negative (NEGATIVE) U Oth Cocaine Metabols Negative (NEGATIVE) U Cannabinoids Screen Negative (NEGATIVE) 09/02/18 Range/Units 11:05 APTT (26.9-38.3) Seconds POC Glucose (mg/dL) (65-110) mg/dL Urine Color Yellow (YELLOW) Urine Appearance Clear (CLEAR) Urine pH 6.0 (4.7-8.0) Ur Specific Sheridan 1.025 (1.005-1.035) Urine Protein Negative (<30 mg/dL) mg/dL Urine Glucose (UA) 250 H (NEGATIVE) mg/dL Urine Ketones 15 H (NEGATIVE) mg/dL Urine Blood Negative (NEGATIVE) Urine Nitrate Negative (NEGATIVE) Urine Bilirubin Negative (NEGATIVE) Urine Urobilinogen 0.2 (<1 E.U./dL) E.U./dL Ur Leukocyte Esterase Negative (NEGATIVE) Beau/uL Urine Opiates Screen (NEGATIVE) Urine Methadone Screen (NEGATIVE) Ur Barbiturates Screen (NEGATIVE) Ur Phencyclidine Scrn (NEGATIVE) Ur Amphetamines Screen (NEGATIVE) U Benzodiazepines Scrn (NEGATIVE) U Oth Cocaine Metabols (NEGATIVE) U Cannabinoids Screen (NEGATIVE) Laboratory Results - last 24 hr 09/02/18 09/02/18 09/02/18 11:05 11:05 15:30 APTT 55.1 H POC Glucose (mg/dL) Urine Color Yellow Urine Appearance Clear Urine pH 6.0 Ur Specific Sheridan 1.025 Urine Protein Negative Urine Glucose (UA) 250 H Urine Ketones 15 H Urine Blood Negative Urine Nitrate Negative Urine Bilirubin Negative Urine Urobilinogen 0.2 Ur Leukocyte Esterase Negative Urine Opiates Screen Positive H Urine Methadone Screen Negative Ur Barbiturates Screen Negative Ur Phencyclidine Scrn Negative Ur Amphetamines Screen Negative U Benzodiazepines Scrn Negative U Oth Cocaine Metabols Negative U Cannabinoids Screen Negative 09/02/18 09/02/18 09/03/18 21:21 21:30 02:57 APTT 52.4 H POC Glucose (mg/dL) 303 H 165 H Urine Color Urine Appearance Urine pH Ur Specific Sheridan Urine Protein Urine Glucose (UA) Urine Ketones Urine Blood Urine Nitrate Urine Bilirubin Urine Urobilinogen Ur Leukocyte Esterase Urine Opiates Screen Urine Methadone Screen Ur Barbiturates Screen Ur Phencyclidine Scrn Ur Amphetamines Screen U Benzodiazepines Scrn U Oth Cocaine Metabols U Cannabinoids Screen 09/03/18 10:29 APTT POC Glucose (mg/dL) 263 H Urine Color Urine Appearance Urine pH Ur Specific Sheridan Urine Protein Urine Glucose (UA) Urine Ketones Urine Blood Urine Nitrate Urine Bilirubin Urine Urobilinogen Ur Leukocyte Esterase Urine Opiates Screen Urine Methadone Screen Ur Barbiturates Screen Ur Phencyclidine Scrn Ur Amphetamines Screen U Benzodiazepines Scrn U Oth Cocaine Metabols U Cannabinoids Screen EKG/Cardiology Studies: Cardiology / EKG Studies 09/02/18 10:52 EKG [ELECTROCARDIOGRAM] Stat Comment: Reason For Exam: CHEST PAIN 09/02/18 14:58 EKG [ELECTROCARDIOGRAM] Stat Comment: Reason For Exam: chest pain/ hx of three stents/ increased troponin 09/03/18 07:01 EKG [ELECTROCARDIOGRAM] Stat Comment: Reason For Exam: positive troponin Does Patient Have a Pacemaker?: No 09/03/18 09:15 ELECTROCARDIOGRAM DAILY Comment: Reason For Exam: chest pain ELECTROCARDIOGRAM Urgent Comment: 12 lead EKG upon arrival in unit Reason For Exam: post ptca 09/03/18 09:19 ELECTROCARDIOGRAM Urgent Comment: 12 lead EKG upon arrival in unit Reason For Exam: post ptca 09/03/18 09:30 ELECTROCARDIOGRAM DAILY Comment: Reason For Exam: chest pain 09/04/18 09:15 ELECTROCARDIOGRAM DAILY Comment: Reason For Exam: chest pain 09/04/18 09:30 ELECTROCARDIOGRAM DAILY Comment: Reason For Exam: chest pain Fingerstick Blood Sugar Results: 263 Critical Care Progress Note - Nutrition Nutrition: Nutrition Category Date Time Status Heart Healthy Diet [DIET] Diets 09/02/18 Lunch Active Assessment/Plan - Assessment and Plan (Free Text) Assessment: Pt is a 58 yo male with a PMH of DM, HTN, HLD, CAD with 3 stents from 1 year ago Plan: Neuro - monitor neuro status Cardio - CAD, HTN, HLD, [place] - pt has received 3 stents 1 year ago - Trop 0.01, 0.58 - EKG showed significant 2mm ST depressions - ASA, lipitor, plavix, metoprolol - Dr Rios placed a cardiac stent Pulm - maintain O2 >92% GI - zofran Nephro/ - BUN/Cr 14/0.8 Heme/ Onc - INR 0.88 - Hgb 14.0 ID - WBC 11.1 Endo - DM - maintain euglycemia Dispo: plan to transfer to [facility] at 3pm Pt seen, examined, assessment and plan discussed with Dr Santiago Alvarado PGY1 - Date & Time Date: 09/03/18 Time: 09:00 <Santiago Tomas - Last Filed: 09/03/18 12:39> CCU Objective - Vital Signs / Intake & Output Vital Signs (Last 4 hours): Vital Signs Temp Pulse Resp BP 09/03/18 12:00 63 15 132/74 09/03/18 11:30 61 15 129/70 09/03/18 11:28 27 L 135/81 09/03/18 11:00 85 17 148/79 09/03/18 10:45 79 25 H 149/82 09/03/18 10:30 64 27 H 135/81 09/03/18 10:15 70 20 147/81 09/03/18 10:00 66 14 139/86 09/03/18 09:45 69 14 149/87 09/03/18 09:30 68 25 H 146/81 09/03/18 09:15 97.7 F 71 21 141/76 Intake and Output (Last 8hrs): Intake & Output 09/02/18 09/03/18 09/03/18 22:59 06:59 14:59 Intake Total 1065.5 495 Output Total 1000 950 Balance 65.5 -455 Weight 79.878 kg Intake: IV 195.5 215 Right Antecubital 215 Right Hand 184 Oral 870 280 Output: Urine 1000 950 Urine, Voided 1000 950 Other: # Bowel Movements 1 - Medications Active Medications: Active Medications Generic Name Dose Route Start Last Admin Trade Name Freq PRN Reason Stop Dose Admin Aspirin 81 mg 09/03/18 10:00 09/03/18 11:26 Ecotrin PO Not Given DAILY [facility] Atorvastatin Calcium 40 mg 09/03/18 17:00 Lipitor PO DIN [facility] Clopidogrel Bisulfate 75 mg 09/03/18 10:00 09/03/18 11:59 Plavix PO Not Given DAILY [facility] Sodium Chloride 1,000 mls @ 100 mls/hr 09/03/18 09:15 09/03/18 11:29 Sodium Chloride 0.9% IV 09/03/18 15:00 100 mls/hr .Q10H JAMES Administration Insulin Human Regular 0 units 09/02/18 09:15 09/03/18 11:27 Humulin R Med SC 5 units Q6H [facility] Administration Protocol Metoprolol Tartrate 5 mg 09/02/18 16:00 09/03/18 04:20 Lopressor IVP 5 mg Q6H JAMES Administration Metoprolol Tartrate 25 mg 09/03/18 10:00 09/03/18 11:28 Lopressor PO 25 mg BID JAMES Administration - Patient Studies Lab Studies: Microbiology Studies 09/02/18 11:05 Urine Culture - Final Urine,Clean Catch No Growth (<1,000 CFU/ML) Lab Studies 09/03/18 09/03/18 09/02/18 Range/Units 10:29 02:57 21:30 APTT 52.4 H (26.9-38.3) Seconds POC Glucose (mg/dL) 263 H 165 H (65-110) mg/dL 09/02/18 09/02/18 Range/Units 21:21 15:30 APTT 55.1 H (26.9-38.3) Seconds POC Glucose (mg/dL) 303 H (65-110) mg/dL Laboratory Results - last 24 hr 09/02/18 09/02/18 09/02/18 15:30 21:21 21:30 APTT 55.1 H 52.4 H POC Glucose (mg/dL) 303 H 09/03/18 09/03/18 02:57 10:29 APTT POC Glucose (mg/dL) 165 H 263 H EKG/Cardiology Studies: Cardiology / EKG Studies 09/02/18 14:58 EKG [ELECTROCARDIOGRAM] Stat Comment: Reason For Exam: chest pain/ hx of three stents/ increased troponin 09/03/18 07:01 EKG [ELECTROCARDIOGRAM] Stat Comment: Reason For Exam: positive troponin Does Patient Have a Pacemaker?: No 09/03/18 09:15 ELECTROCARDIOGRAM DAILY Comment: Reason For Exam: chest pain ELECTROCARDIOGRAM Urgent Comment: 12 lead EKG upon arrival in unit Reason For Exam: post ptca 09/03/18 09:19 ELECTROCARDIOGRAM Urgent Comment: 12 lead EKG upon arrival in unit Reason For Exam: post ptca 09/03/18 09:30 ELECTROCARDIOGRAM DAILY Comment: Reason For Exam: chest pain 09/04/18 09:15 ELECTROCARDIOGRAM DAILY Comment: Reason For Exam: chest pain 09/04/18 09:30 ELECTROCARDIOGRAM DAILY Comment: Reason For Exam: chest pain Critical Care Progress Note - Nutrition Nutrition: Nutrition Category Date Time Status Heart Healthy Diet [DIET] Diets 09/02/18 Lunch Active Addendum Addendum: 09/03/18 12:39 MICU Attending Addendum: Patient seen and examined with housestaff, case discussed on rounds. I agree with resident note above with the following additions/exceptions: 58M DM, HTN, HLD, CAD with prior stents cath this am s/p stent placement in Lcx hemodynamically stable, no chest pain ASA Plavix Statin BB GAVI-I As per Dr Rios, stable for transfer to telemetry this afternoon Rest of care as per resident note above Santiago Tomas MD Attending Pulmonary Critical Care Sleep Medicine
--- NOTE | 2018-09-03 12:38 | CARDCATH ---
PROCEDURE DATE: 09/03/2018 HISTORY: The patient is a 58-year-old male with aggressive atherosclerosis documented triple-vessel CAD and diabetes mellitus who presents with a non-STEMI and continued unstable angina. The patient is brought to the semiconductor lab technician this morning. PROCEDURE: Left heart catheterization with coronary arteriography, left ventriculogram followed by PTCA and stent of a proximal circumflex artery. The right femoral artery was cannulated with a 6-Vietnamese sheath. There were no complications. I performed moderate sedation which included the presence of an independent trained observer that assisted in monitoring the patient's level of consciousness and physiologic status. After administration of Versed and fentanyl, my intra-service time was 45 minutes. The findings on catheterization revealed a left ventricle that contracted normally. Estimated ejection fraction is 55% to 60%. His coronary anatomy revealed a right dominant circulation. The RCA revealed diffuse atherosclerosis with two stents that were patent. There was diffuse disease in the PDA and posterolateral branch. The left main artery revealed mild intimal irregularities without critical lesions. The circumflex artery revealed two stents, one in the ostium of the circ, one in the midportion of the circumflex artery. The mid circumflex artery was patent. The ostial circumflex revealed a 99% stenoses. The LAD revealed diffuse atherosclerosis throughout its tree with extensive disease from the proximal all the way down to the mid lesion with two tandem 70% lesions in the mid and distal LAD. The patient was started on intravenous Angiomax under fluoroscopic guide, the guiding catheter was placed in the ostium of left main artery. An 0.014 ATW wire was used to place into the circumflex artery passed the subtotal occluded circumflex. A second wire was placed in the high obtuse marginal branch or ramus intermedius. A 2.0 balloon was utilized to dilate both lesions, one in the ramus and one in the in-stent restenosis of the circumflex artery. A 2.25 x 8 mm drug-eluting stent was placed and deployed at 15 ounces of pressure. Repeat coronary arteriography revealed an excellent result with no residual stenosis and HERO III flow. The ramus intermedius 90% stenoses, improved to 50% with just ballooning. The vessel was too small for PTCA for stenting. Angio-Seal was used to close the femoral artery site. The patient tolerated the procedure well. In summary, the procedure was successful PTCA and stent of a subtotally occluded in-stent restenosis of an ostial circumflex artery. Cardiac catheterization reveals patent stents in the RCA x2, patent stent in the midcircumflex artery with an in-stent restenosis of the ostial circumflex as well as multiple 70% lesions in the LAD. LV function is normal. Given these findings, the patient will need to remain on aspirin indefinitely and Plavix for least a year. He needs to undergo an aggressive cardiac risk reduction program. He may benefit from a more aggressive cholesterol strategy including the possibility of Repatha. Roger Rios MD
--- NOTE | 2018-09-03 16:19 | CP.PCM.PN ---
Subjective - Date & Time of Evaluation Date of Evaluation: 09/03/18 Time of Evaluation: 15:50 - Subjective Subjective: resting comfortably, NAD, denies chest pain, no SOB Objective - Vital Signs/Intake and Output Vital Signs (last 24 hours): Temp Pulse Resp BP Pulse Ox 98.2 F 79 18 141/89 99 09/03/18 15:00 09/03/18 15:00 09/03/18 15:00 09/03/18 15:00 09/03/18 06:00 Intake and Output: 09/03/18 09/03/18 06:59 18:59 Intake Total 1550.5 Output Total 1950 Balance -399.5 - Medications Medications: Current Medications Aspirin (Ecotrin) 81 mg PO DAILY [facility] Last Admin: 09/03/18 11:26 Dose: Not Given Atorvastatin Calcium (Lipitor) 40 mg PO DIN JAMES Clopidogrel Bisulfate (Plavix) 75 mg PO DAILY [facility] Last Admin: 09/03/18 11:59 Dose: Not Given Insulin Human Regular (Humulin R Med) 0 units SC Q6H [facility]; Protocol Last Admin: 09/03/18 15:25 Dose: 5 u Metoprolol Tartrate (Lopressor) 5 mg IVP Q6H [facility] Last Admin: 09/03/18 04:20 Dose: 5 mg Metoprolol Tartrate (Lopressor) 25 mg PO BID [facility] Last Admin: 09/03/18 11:28 Dose: 25 mg - Labs Labs: 09/02/18 07:30 09/02/18 07:30 PT 9.9 SECONDS (9.4-12.5) 09/02/18 07:20 INR 0.88 09/02/18 07:20 APTT 52.4 Seconds (26.9-38.3) H 09/02/18 21:30 - Respiratory Exam Respiratory Exam: Clear to Ausculation Bilateral, NORMAL BREATHING PATTERN - Cardiovascular Exam Cardiovascular Exam: REGULAR RHYTHM - GI/Abdominal Exam GI & Abdominal Exam: Soft, Normal Bowel Sounds - Extremities Exam Extremities Exam: Normal Inspection - Neurological Exam Neurological Exam: Alert, Awake - Skin Skin Exam: Dry, Warm Assessment and Plan (1) NSTEMI (non-ST elevated myocardial infarction) Status: Acute (2) Type II diabetes mellitus Status: Acute - Assessment and Plan (Free Text) Plan: continue post-op abraham cardio follow-up
--- NOTE | 2018-09-03 22:51 | CON ---
DATE: 09/03/2018 LOCATION: The patient is in ICU 128, bed 3. REASON FOR CONSULTATION AND FOLLOWUP: Coronary artery disease, [id number] myocardial infarction, diabetes, hypertension, and high cholesterol. HISTORY OF PRESENT ILLNESS: The patient is a 58-year-old male, known case of coronary artery disease, status post stent insertion on 05/15/2017, admitted that he woke up from sleep with tightness in the chest which lasted 1-1/2 hour, the patient came to emergency room. Initial troponin was less than 0.01, second troponin 0.58, suggestive of [id number] myocardial infarction. The patient's EKG showed left bundle branch block like before. PAST MEDICAL HISTORY: Positive for diabetes mellitus, hypertension, high cholesterol, status post drug-eluting stent put in mid RCA, ostial circumflex and OM1 on 05/15/2017. FAMILY HISTORY: Positive for diabetes mellitus and hypertension. Father had coronary artery disease. SOCIAL HISTORY: Denies smoking. Denies drinking. ALLERGIES: THE PATIENT DENIES ANY ALLERGIES. LIST OF MEDICATIONS AT HOME: The patient was on Coreg 25 mg b.i.d., losartan 100 mg daily, Januvia 100 mg daily, amlodipine 10 mg daily, aspirin 81 mg daily, Lipitor 10 mg daily, Plavix 75 mg daily, and metformin 1000 mg b.i.d. REVIEW OF SYSTEMS: All other systems reviewed. Positives mentioned in the history, otherwise negative. PREVIOUS CARDIAC WORKUP: The patient had stress test on 04/13/2017, which showed ischemia and intraseptal, apical and inferolateral with ejection fraction close to 34%. The patient had cardiac catheterization on 05/15/2017 and it showed that the patient's ejection fraction was 35%. Distal target vessels were very poor. The patient has PTCA with drug-eluting stent put in mid RCA, ostial circumflex and OM1. The patient had followup MUGA scan on 12/14/2017, which showed LV ejection fraction improved to 54%. The patient had repeat stress test on 06/29/2018 when he was asymptomatic on the Treadmill without any chest pain. The patient has some ST-T changes, but the patient had left bundle branch block as before. Scan showed partially reversible intraseptal, apical, and inferolateral defect which showed improvement as compared to stress test of 04/13/2017; however, ejection fraction was 34% and at that time this stress test was asymptomatic as far as chest pain was concerned, and scan showed improvement in his ischemic changes on the nuclear stress test. Also, MUGA scan has improved to 54% from 33% and 34%. So, it was decided to treat him medically. A repeat MUGA scan was requested. The patient's echocardiogram on 06/29/2018, showed normal size LV. LV shows mild hypertrophy, ejection fraction of 45%, and trace tricuspid regurgitation. Cardiac catheterization finding on 09/03/2018, Dr. Bal was away on conference, so cardiac catheterization was done by Dr. Rios because the patient had chest pain and [id number] myocardial infarction with troponin elevated. The patient's left ventriculogram showed ejection fraction 55% to 60%, right dominant circulation. RCA revealed diffuse atherosclerosis with two stents that were patent. There was diffuse disease in the PDA and posterolateral branch. Left main artery showed mild intimal irregularities without any critical lesion. Circumflex artery revealed stents, one in the ostium of the circumflex, one in the midportion of the circumflex artery. The mid circumflex artery stent was patent. The ostial circumflex stent showed inside the stent 99% stenosis, in which a new stent was put in. LAD revealed diffuse atherosclerosis throughout its tree with extensive disease from the proximal to all the way down to the mid lesion with two tandem 70% lesions in the mid and distal LAD. The patient had ramus intermedius 90% stenosis, which improved with balloon angioplasty to 50%. The vessel was too small for PTCA for stenting. In summary, the cardiac catheterization revealed patent stents in RCA, two stents were patent, patent stent in the midcircumflex artery, but with the in-stent restenosis of the ostial circumflex as well as multiple 70% lesions in the LAD. So, successful in-stent new stent was put in the ostial circumflex and plain balloon angioplasty of ramus intermedius was done which showed stenosis improving from 90% to 50%. PHYSICAL EXAMINATION: GENERAL: The patient is now lying flat in bed. VITAL SIGNS: Blood pressure 132/74, respirations 15, pulse 63, and afebrile. HEENT: Head is normocephalic. Eyes; pupils normal. Conjunctiva normal. Nose and throat normal. NECK: JVP low. Carotid equal. THORAX: AP diameter normal. LUNGS: Clear. CARDIOVASCULAR: S1 and S2. ABDOMEN: Soft. No tenderness. No organomegaly. Bowel sound normal. EXTREMITIES: No clubbing. No cyanosis. LABORATORY DATA: WBC 11.1, hemoglobin 14.0, hematocrit 41.8, and platelet 239. Sodium 139, potassium 3.8, BUN 14, creatinine 0.8, and random sugar 263, another sugar 191. Initial troponin 0.01 and second troponin 0.58. AST, ALT, total protein, magnesium, and calcium are normal. NT-pro B-type natriuretic peptide 63. Chest x-ray was clear. EKG showed regular sinus rhythm, left bundle branch block as before. DIAGNOSES: [id number] myocardial infarction, status post drug-eluting stent insertion, and ostial circumflex stent and plain balloon angioplasty of ramus intermedius, from 90% to 50% improvement in the blockage. Diabetes, hypertension and hyperlipidemia. PLAN: The patient is on aspirin 81 mg daily, atorvastatin 40 mg daily, metoprolol 25 mg b.i.d., and Plavix 75 mg daily. We will continue present therapy and we will follow closely with you. Carl Ro MD
[2018-09-04 06:26] LABS: BASO # 0.03 K/mm3 (0.0-2.0); BASO % 0.3 % (0.0-3.0); EOS # 0.1 (0.0-0.7); EOS % 1.1 % (1.5-5.0); HEMOGLOBIN 12.8 g/dL (14.0-18.0); LYMPH # 3.1 (1.2-3.4); LYMPH % 27.5 % (22.0-35.0); MEAN CELL VOLUME 87.6 fl (80.0-105.0); MEAN CORPUSCULAR HEMOGLOBIN 27.8 pg (25.0-35.0); MEAN CORPUSCULAR HGB CONC 31.7 g/dl (31.0-37.0); MEAN PLATELET VOLUME 11.6 fl (7.0-11.0); MONO # 0.8 (0.1-0.6); MONO % 7.2 % (1.0-6.0); RBC 4.61 10^6/uL (3.5-6.1); RED CELL DISTRIBUTION WIDTH 13.1 % (11.5-14.5); WHITE BLOOD COUNT 11.4 10^3/uL (4.5-11.0)
[2018-09-04] MEDS: Insulin Reg-MEDIUM-Coverage SC SCH (06:35)
[2018-09-04 07:21] LABS: BLOOD UREA NITROGEN 11 mg/dL (7-21); CALCIUM 9.2 mg/dL (8.4-10.5); GFR NON-AFRICAN AMERICAN > 60
[2018-09-04 08:01] VITALS: RESP 16; TEMP 98.1
[2018-09-04 09:43] VITALS: BP 159/86; PULSE 86
[2018-09-04] MEDS ORDERED: Insulin Reg-MEDIUM-Coverage SC SCH (11:30)
[2018-09-04 11:36] VITALS: O2SAT 97
--- NOTE | 2018-09-04 14:15 | PN ---
DATE: 09/04/2018 LOCATION: The patient in ICU 128, bed 3. REASON FOR CONSULTATION AND FOLLOWUP: Coronary artery disease, non-ST elevation myocardial infarction, diabetes, hypertension, high cholesterol, status post angioplasty and insertion of stent within the stent for occlusion, ostial circumflex stent and plain balloon angioplasty of ramus intermedius which was reduced from 90% to 50%, diabetes, hypertension, hyperlipidemia. SUBJECTIVE: The patient denies any chest pain, shortness of breath or palpitation. PHYSICAL EXAMINATION VITAL SIGNS: Blood pressure is 159/86, respirations 18 and pulse 86. The patient afebrile. HEENT: Head is normocephalic. Eyes; pupils normal. Conjunctivae normal. Nose and throat normal. NECK: JVP low. Carotids equal. THORAX: AP diameter normal. LUNGS: Clear. CARDIOVASCULAR: S1 and S2. ABDOMEN: Soft. No tenderness. No organomegaly. EXTREMITIES: No clubbing. No cyanosis. LABORATORY DATA: WBC 11.4, hemoglobin 12.8, hematocrit 40.4 and platelet 200. Sodium 140, potassium 4.1, BUN 11, creatinine 0.8, random sugar 218, calcium is 9.2 and cholesterol 129. The patient's first troponin on admission was less than 0.01, second was 0.58. The patient has cardiac cath by Dr. Rios, because Dr. Bal was away and the patient found to have critical blockage in the ostial circumflex stent, which was previously put, so there was a new drug-eluting stent put within the stent in the ostial stent and the patient had plain balloon angioplasty of ramus intermedius which the balloon became from 90% to 50%. Detail cath finding was mentioned in our consult of 09/03/2018, so please refer to that. DIAGNOSES: Diabetes, hypertension, hyperlipidemia, ejection fraction 55% to 60%, stents in right coronary artery were patent. PLAN: The patient at home was taking amlodipine 10 mg daily, Januvia 100 mg daily, metformin 1000 mg b.i.d., losartan 100 mg daily, Plavix 75 mg daily, Coreg 25 mg b.i.d., atorvastatin 10 mg daily, aspirin 81 mg daily. He will continue same medications. I will follow in office, followup the blood work. The patient was given instructions for diet as well. Carl Ro MD [facility] # [id number]
--- NOTE | 2018-09-04 15:02 | DS ---
HOSPITAL COURSE: The patient is a 58-year-old male admitted through the emergency department on 09/02/2018 with precordial chest pressure. The patient had an elevated troponin level is 0.58 and was seen in consultation by Dr. Roger Rios. The patient underwent cardiac catheterization on 09/03/2018 which showed obstruction of one of his dense he underwent PTCA and stent of a subtotally occluded in stent restenosis of an ostial circumflex artery. The patient has had an uncomplicated postoperative course and is now medically stable for discharge. PHYSICAL EXAMINATION: VITAL SIGNS: Blood pressure 159/86, pulse 86, the patient is afebrile, respiratory rate 16. LUNGS: Clear. HEART: Regular rate and rhythm. ABDOMEN: Soft, nontender. Bowel sounds are normoactive. EXTREMITIES: Without cyanosis, clubbing or edema. IMPRESSION: 1. Coronary artery disease/non-ST segment elevation myocardial infarction status post cardiac catheterization with percutaneous transluminal coronary angioplasty/stent placement. 2. Type 2 diabetes mellitus. 3. Hypercholesterolemia. 4. Hypertension. PLAN: The patient will be discharged to home today in stable condition on the following medications, metformin 1000 mg twice daily, Januvia 100 mg daily, losartan 100 mg daily, metoprolol 25 mg twice daily, Lipitor 10 mg daily and Plavix 75 mg daily. The patient be maintained on a heart-healthy diet. Activities ad libitum. He will be followed as an outpatient within the next 1-2 weeks in my office as well as by Dr. Ro/Dr. Bal. DANUTA Moore MD
--- NOTE | 2018-09-04 17:46 | CARD ---
APPROVED REPORT Date of service: 09/04/2018 EKG Measurement Heart [id number] <Conclusion> Normal sinus rhythm Left bundle branch block Abnormal ECG
== END 2018-09-04 18:13 | disposition home or self-care (01) | DRG 247 ==
LOC: ED 07:19 → ERH 10:51 → ICU 11:31
PROVIDERS: ADMIT Internal Medicine; ATTEND Internal Medicine
PROC: 3E053PZ Introduction of Platelet Inhibitor into Peripheral Artery, Percutaneous Approach (ICD-10-PCS; 2018-09-02)
PROC: 027034Z Dilation of Coronary Artery, One Artery with Drug-eluting Intraluminal Device, Percutaneous Approach (ICD-10-PCS; principal; 2018-09-03)
PROC: 4A023N7 Measurement of Cardiac Sampling and Pressure, Left Heart, Percutaneous Approach (ICD-10-PCS; 2018-09-03)
PROC: B2111ZZ Fluoroscopy of Multiple Coronary Arteries using Low Osmolar Contrast (ICD-10-PCS; 2018-09-03)
PROC: B2151ZZ Fluoroscopy of Left Heart using Low Osmolar Contrast (ICD-10-PCS; 2018-09-03)
PROC: 3E033PZ Introduction of Platelet Inhibitor into Peripheral Vein, Percutaneous Approach (ICD-10-PCS; 2018-09-03)
DX: I21.4 Non-ST elevation (NSTEMI) myocardial infarction (principal); T82.855A Stenosis of coronary artery stent, initial encounter; I25.110 Atherosclerotic heart disease of native coronary artery with unstable angina pectoris; I10 Essential (primary) hypertension; E11.9 Type 2 diabetes mellitus without complications; I44.7 Left bundle-branch block, unspecified; Z79.02 Long term (current) use of antithrombotics/antiplatelets; Z79.82 Long term (current) use of aspirin; E78.00 Pure hypercholesterolemia, unspecified; E78.5 Hyperlipidemia, unspecified; Z82.49 Family history of ischemic heart disease and other diseases of the circulatory system; Z83.3 Family history of diabetes mellitus; Z90.49 Acquired absence of other specified parts of digestive tract